=== PATIENT | male | born 1960 | race Caucasian/White ===

== ENCOUNTER → 2019-09-23 | Outpatient (CLI) | payer OTHER ==
[2015-10-16 15:00] VITALS: BP 155/112
[~2019-09-23] MED LIST: HYDR12.575 PO; OMEP20TA63 PO
== END | disposition home or self-care (01) ==
LOC: LAB 12:59
PROVIDERS: ATTEND Internal Medicine Gastroenterology
DX: Z11.59 Encounter for screening for other viral diseases (principal)
CPT/HCPCS: 36415; U0003

== ENCOUNTER → 2019-09-28 | Day surgery (SDC) | payer OTHER ==
[~2019-09-28] MED LIST changes: +IV RINGERS,LACTATED 1000ML 1,000 ML IV ONE; +PROPOFOL 10 MG/ML (20ML) VIAL. IV ONE
[2019-09-28 08:21] VITALS: BP 164/106
--- NOTE | 2019-09-28 18:24 | CONS ---
DATE OF CONSULTATION: 09/28/2019 REASON FOR CONSULTATION: Colorectal screening and GERD. REFERRING PHYSICIAN: Maged Prince MD HISTORY OF PRESENT ILLNESS: A 59-year-old male with past medical history significant for hypertension, gastroesophageal reflux disease, status post hernia repair is seen for his chronic heartburn. He does use alcohol, tobacco and caffeine. His risk factors for reflux, his father did from esophageal cancer. He denies any dysphagia or weight loss at this time. Does have persistent symptoms, upper endoscopy is requested. In addition, he has normal bowel habits without diarrhea or constipation. There has been no melena or hematochezia. No family history of colon cancer, colon polyps were encountered. Last colonoscopy was over 8 years ago. He is otherwise without additional complaints. PAST MEDICAL HISTORY: Hypertension, GERD, history of hernia operation. ALLERGIES: None. MEDICATIONS: Include hydrochlorothiazide 12.5 mg daily, omeprazole 20 mg daily. SOCIAL HISTORY: Social drinker and smoker. FAMILY HISTORY: Significant for esophageal cancer with his father. REVIEW OF SYSTEMS: HEENT: There is no decrease in visual acuity issues. NEUROLOGIC: No stroke, migraine, neuropathy. PSYCHIATRIC: No mood swings, depression, insomnia. ENDOCRINE: No history of heat or cold intolerance. HEMATOLOGIC: No bleeding, bruising, coagulopathy. CARDIOVASCULAR: History of hypertension. PULMONARY: History of tobaccoism. GASTROINTESTINAL: See history of present illness. MUSCULOSKELETAL: No osteoarthrosis, arthralgias, myalgias. DERMATOLOGIC: No skin rashes or pruritus. PHYSICAL EXAMINATION: GENERAL: Reveals a well-nourished, well-developed male who is alert, cooperative, in no acute distress. VITAL SIGNS: Temperature 98, pulse 70, respirations 20. LUNGS: Clear. CARDIOVASCULAR: Reveals an S1, S2 without S3, S4 or appreciable murmur. ABDOMEN: With a soft abdomen, normal bowel sounds, without appreciable hepatosplenomegaly. EXTREMITIES: Reveals no cyanosis, clubbing or edema. IMPRESSION: 1. Gastroesophageal reflux disease with breakthrough symptoms, family history of esophageal cancer. Upper endoscopy is recommended to further assess. Risks and benefits have been discussed and the patient is willing to proceed. 2. Colorectal screening is warranted at this time. Risks and benefits have been discussed, the patient is willing to proceed. JENELLE WIN MD DR: ADAN/samy JOB#: [id number] / [id number]
--- NOTE | 2019-09-29 16:06 | PATHOLOGY ---
[facility] Accession Number: [id number] . 01 Material submitted: . PART A: esophagus - DISTAL ESOPHAGUS BX. Modifiers: distal PART B: sigmoid colon - SIGMOID POLYPS . 01 Clinician provided ICD-10: y . 01 Clinical history: . GERD; screening . 02 Diagnosis: A. Esophageal biopsies, distal esophagus: - Reflux esophagitis. . B. Colon biopsies, sigmoid colon polyps: - Hyperplastic polyps. (JPM:edel; 09/29/2019) S 09/29/2019 0958 Local . 02 Comment: Sections of the distal esophageal biopsy reveal segments of mildly hyperplastic squamous esophageal mucosa. The findings are consistent with reflux esophagitis. There is no evidence of Leach's change, dysplasia, or malignancy. . Sections of the sigmoid colon biopsy reveal multiple hyperplastic polyps. There are no adenomatous changes or evidence of malignancy. (JPM:edel; 09/29/2019) . 02 Electronically signed: . Rob Joel MD, Pathologist NPI- [id number] . 01 Gross description: . A. The specimen is received in formalin, labeled "Rashid Portillo, distal esophagus biopsy". Received are two segments of pale schaefer soft tissue ranging in size from 0.4 to 0.5 cm in maximum dimensions. The specimen is submitted entirely in cassette A1. . B. The specimen is received in formalin, labeled "Rashid Portillo, sigmoid polyps". Received are five segments of pale schaefer soft tissue ranging in size from 0.2 to 0.6 cm in maximum dimensions. The specimen is submitted entirely in cassette B1. (CAA; 09/28/2019) QAC/QAC 09/28/2019 1741 Local . 02 Pathologist provided ICD-10: K21.0, K63.5 . 02 CPT . 324226, [id number] Specimen Comment: A courtesy copy of this report has been sent to [phone], [phone] Specimen Comment: [id number] Specimen Comment: Report sent to / DR MICHAEL Performed at: [facility] [address] [address], [place] [id number] MD Tom Ervin MD Phone: [phone] Performed at: 02 [facility] [address], [place] [id number] MD Rob Joel MD Phone: [phone]
== END ==
LOC: ENDOS 06:26
PROVIDERS: ATTEND Internal Medicine Gastroenterology
DX: Z12.11 Encounter for screening for malignant neoplasm of colon (principal); K63.5 Polyp of colon; K21.0 Gastro-esophageal reflux disease with esophagitis; K29.50 Unspecified chronic gastritis without bleeding; K64.0 First degree hemorrhoids; K57.30 Diverticulosis of large intestine without perforation or abscess without bleeding; I10 Essential (primary) hypertension; Z72.89 Other problems related to lifestyle
CPT/HCPCS: 43239; 45380; 88305; J2704